=== PATIENT | female | born 1985 | race American Indian/Alaskan Native ===

== ENCOUNTER 2019-12-07 07:57 | Inpatient (IN) | payer BC, MEDICAID ==
[2019-12-07] MEDS ORDERED: LACTATED RINGERS 2,000 ML ONE (08:19)
[2019-12-07] MEDS ORDERED: FAMOTIDINE 20 MG/2 ML INJ IV ONE (08:31)
[2019-12-07] MEDS ORDERED: BICITRA ORAL LIQD 30ML PO ONE (08:31)
[2019-12-07] MEDS ORDERED: METOCLOPRAMIDE 10 MG/2 ML INJ IV ONE (08:31)
[2019-12-07 08:43] LABS: Basophils % (Auto) 0.4 % (0.0-1.8); Eosinophils # (Auto) 0.2 K/mm3 (0.0-0.4); Eosinophils % (Auto) 1.8 % (0.0-4.3); Hematocrit 39.5 % (30.3-42.9); Hemoglobin 13.6 gm/dl (10.1-14.3); Lymphocytes # (Auto) 1.3 K/mm3 (1.2-5.4); Lymphocytes % (Auto) 12.7 % (13.4-35.0); Mean Corpuscular HGB Conc 35 % (30-34); Mean Corpuscular Volume 91 fl (79-97); Monocytes # (Auto) 0.8 K/mm3 (0.0-0.8); Monocytes % (Auto) 7.6 % (0.0-7.3); Platelet Count 304 K/mm3 (140-440); Red Blood Count 4.35 M/mm3 (3.65-5.03); Red Cell Distribution Width 13.8 % (13.2-15.2)
--- NOTE | 2019-12-07 08:50 | Anesthesia Day of Surgery ---
Anesthesia Day of Surgery - Day of Surgery Patient Examined: Yes Patient H&P Reviewed: Yes Patient is NPO: Yes Beta Blockers: No Cardiac Clearance: No Pulmonary Clearance: No Bernardo's Test: N/A
[2019-12-07] MEDS: LACTATED RINGERS 1,000 ML IV SCH ×2 (08:53→15:39)
[2019-12-07] MEDS ORDERED: BUPIVACAINE-EPINEPHRINE/PF 0.25%-1:200,000 (30 ML) VIAL INFILTRATI ONE (08:58)
[2019-12-07] MEDS ORDERED: OXYTOCIN 20 UNIT/1000ML DRIP 20 UNITS/1,000 ML BAG IV SCH ×2 (09:00→13:00)
[2019-12-07] MEDS ORDERED: ceFAZolin/Water 2 GM/20 ML 2 GM/20 ML SYRINGE IV NR (09:00)
--- NOTE | 2019-12-07 09:14 | Anesthesia Consultation ---
Anesthesia Consult and Med Hx Date of service: 12/07/19 - Airway Anesthetic Teeth Evaluation: Poor ROM Head & Neck: Adequate Mental/Hyoid Distance: Adequate Mallampati Class: Class II Intubation Access Assessment: Probably Good - Pulmonary Exam CTA: Yes - Cardiac Exam Cardiac Exam: RRR - Pre-Operative Health Status ASA Pre-Surgery Classification: ASA3 Proposed Anesthetic Plan: Spinal - Pre-Anesthesia Comment Pre-Anesthesia Comments: csection 5yrs ago - Pulmonary Hx Smoking: No Hx Asthma: No Hx Respiratory Symptoms: No SOB: No COPD: No Home Oxygen Therapy: No Hx Pneumonia: No Hx Sleep Apnea: No - Cardiovascular System Hx Hypertension: Yes (LABERTALOL) Hx Coronary Artery Disease: No Hx Heart Attack/AMI: No Hx Angina: No Hx Percutaneous Transluminal Coronary Angioplasty (PTCA): No Hx Cardia Arrhythmia: No Hx Pacemaker: No Hx Internal Defibrillator: No Hx Valvular Heart Disease: No Hx Heart Murmur: No Hx Peripheral Vascular Disease: No - Central Nervous System Hx Neuromuscular Disorder: No Hx Seizures: No CVA: No Hx Back Pain: No Hx Psychiatric Problems: No - Gastrointestinal Hx Ulcer: No Hx Gastroesophageal Reflux Disease: Yes - Endocrine Hx Renal Disease: No Hx End Stage Renal Disease: No Hx Cirrhosis: No Hx Liver Disease: No Hx Insulin Dependent Diabetes: No Hx Non-Insulin Dependent Diabetes: No Hx Thyroid Disease: No Hx Hypothyroidism: No Hx Hyperthyroidism: No - Hematic Hx Anemia: No Hx Sickle Cell Disease: No - Other Systems Hx Alcohol Use: No Hx Substance Use: No Hx Cancer: No Hx Obesity: Yes
[2019-12-07] MEDS ORDERED: WATER FOR IRRIG STERILE 1,500 ML BOTTLE IR ONE (09:40)
[2019-12-07] MEDS ORDERED: SODIUM CHLORIDE 0.9% IRR 1,500 ML BOTTLE IR ONE (09:40)
[2019-12-07] MEDS ORDERED: PHENYLEPHRINE/NS 1,000 MCG/10 ML SYRINGE (OR USE) IV ONE (09:51)
[2019-12-07] MEDS ORDERED: ONDANSETRON 4 MG/2 ML INJ ONE (09:51)
[2019-12-07] MEDS ORDERED: KETOROLAC 30 MG/1 ML INJ ONE (09:51)
[2019-12-07] MEDS ORDERED: miSOPROStol 200 MCG TAB ONE (09:52)
[2019-12-07] MEDS ORDERED: DEXMEDETOMIDINE 200 MCG/2 ML VIAL IV ONE (09:52)
[2019-12-07] MEDS ORDERED: miSOPROStol 100 MCG TAB ONE (11:12)
[2019-12-07] MEDS ORDERED: CARBOPROST TROMETHAMINE 250 MCG/1 ML INJ IM ONE (11:13)
[2019-12-07] MEDS ORDERED: HYDROmorphone 1 MG/1 ML INJ IV PRN (11:53)
[2019-12-07] MEDS ORDERED: ONDANSETRON 4 MG/2 ML INJ IV PRN ×2 (11:53→12:30)
--- NOTE | 2019-12-07 11:53 | Post Anesthesia Evaluation ---
- Post Anesthesia Evaluation Patient Participated: Yes Airway Patent: Yes Stable Respiratory Function: Yes Nausea/Vomiting: No Temp > 96.8F: Yes Pain Manageable: Yes Adequeate Hydration: Yes Anesthesia Complications: No Block Receding Appropriately: Yes Patient on Ventilator: No
[2019-12-07] MEDS ORDERED: WITCH HAZEL/ GLYCERIN PAD TP PRN (12:17)
[2019-12-07] MEDS ORDERED: LANOLIN/ZINC/DIMETHICONE (LANSINOH) 7 GM TP PRN (12:17)
[2019-12-07] MEDS ORDERED: KETOROLAC 30 MG/1 ML INJ IV PRN (12:17)
[2019-12-07] MEDS ORDERED: NALOXONE 0.4 MG/1 ML INJ IV PRN (12:30)
--- NOTE | 2019-12-07 13:51 | Procedure Note ---
OB Delivery Note - Delivery Date of Delivery: 12/07/19 Surgeon: ALDEN PURVIS Estimated blood loss: other (900cc) - Section Preop diagnosis: repeat , desires sterilization Postop diagnosis: same section procedure: section, repeat low transverse, other (Bilateral salpingectomies) Disposition: PACU Complications: none Narrative: Indication: 34-year-old at 39 weeks and 6 days is here today for her repeat low-transverse . Patient with a history of 1 prior . Of note after that last , patient had the Essure sterilization procedure. Subsequent to that patient became with this . Patient also noted that she needed a bladder repair during her first . Findings: Normal uterus, tubes and ovaries except for thick band of adhesions from the anterior uterine wall to the peritoneum with some omental adhesions as well. The Essure coils were not visible or palpable. Thin meconium fluid. Loose nuchal cord around the body x1. Procedure: Patient taken to the operating room and prepped and draped in the usual fashion. Pfannenstiel skin incision was made and carried down to the underlying fascia. Fascia was incised and the incision was extended bilaterally. Rectus fascia dissected off the rectus muscle both superiorly and inferiorly. Peritoneum identified tented up and entered. Peritoneal incision extended superiorly and inferiorly with good visualization of the bladder. Bladder blade was placed. The above-noted adhesions were lysed with combination of cautery and suture ligation. Uterine incision was made and the incision was extended bilaterally. The baby was delivered from in the typical vertex fashion. Baby bulb suctioned at the incision site and again after delivery. Cord was delayed clamped and cut and handed off to waiting team. The placenta was delivered spontaneously. The uterus was exteriorized and cleared of all clots and debris. Uterine incision closed with 0 Vicryl in a running locked fashion followed by a second imbricating layer of 0 Vicryl. A couple additional stitches were required and then good hemostasis was noted. Her urine was clear with no evidence of bladder injury. At this point attention was turned to the fallopian tubes. As was discussed with the patient preoperatively, since she became after having the Essure sterilization, decision was made to remove both tubes. Attention was first turned to the right side where all the areas of attachment were dissected off with either cautery or 2-0 Vicryl suture ligation. The right fallopian tube was then sent to pathology and that sides salpingectomy was performed without difficulty and with good hemostasis. Attention was then turned to the left side where this was done the exact same fashion with equal success and good hemostasis. Surgicel placed over both areas of dissection. During manipulation of the uterus there was a small serosal tear near the posterior fundus of the uterus which was repaired with running 2-0 Vicryl stitch and good hemostasis noted after that. Uterus tubes and ovaries returned to the abdominal cavity. Pelvis was well irrigated. Good hemostasis noted, including at the areas of the salpingectomies. Interceed placed over the uterine incision and over the lower uterine segment in the midline. Attention was turned to the rectus fascia which was reapproximated with 0 Vicryl in a running fashion. Subcutaneous tissues was irrigated and reapproximated with 2-0 Vicryl in a running fashion. Skin was closed with 4-0 Vicryl in a subcuticular fashion followed by Dermabond. The procedure was concluded at this point and the patient tolerated the procedure well. All instrument and lap counts were correct. - Infant A at 1 minute: 8 at 5 minutes: 9 Infant Gender: Female
[2019-12-07] MEDS ORDERED: SENNOSIDES 8.6 MG TAB PO PRN (22:00)
[2019-12-07] MEDS ORDERED: MAGNESIUM HYDROXIDE (MOM) ORAL LIQD UDC PO PRN (22:00)
[2019-12-08] MEDS: oxyCODONE /ACETAMINOPHEN 5-325MG TAB PO PRN ×3 (01:09→18:02)
[2019-12-08] MEDS: SIMETHICONE 80 MG CHEW TAB PO PRN ×2 (01:09→14:28)
[2019-12-08 06:20] LABS: Hematocrit 29.8 % (30.3-42.9); Hemoglobin 10.1 gm/dl (10.1-14.3)
[2019-12-08] MEDS: FERROUS SULFATE 325 MG TAB PO SCH (14:06)
--- NOTE | 2019-12-08 14:47 | Progress Note ---
Assessment and Plan A: /postop day 1 S/P repeat C/S with bilateral salpingectomies. Anemia. P: Oral iron supplementation. Encouraged ambulation. Subjective - Subjective Date of service: 12/08/19 Principal diagnosis: /postop day 1 S/P repeat LTCS and bilateral salpingectomies Interval history: /postop day 1. Doing well. Patient reports: appetite normal, voiding normally, pain well controlled, flatus, ambulating normally, no dizzy ambulation, no nauseated : doing well Objective - Vital Signs Latest vital signs: Vital Signs Temp Pulse Resp BP Pulse Ox 12/08/19 08:22 98.2 F 94 H 20 139/87 12/08/19 04:00 98.7 F 76 18 120/70 12/08/19 02:50 98 F 93 H 16 124/70 12/08/19 00:00 98.6 F 112 H 18 150/100 12/07/19 19:30 98.6 F 77 18 130/77 12/07/19 16:10 97.9 F 103 H 18 134/90 98 Intake and Output 12/07/19 12/08/19 12/08/19 23:59 07:59 15:59 Intake Total 300 320 Output Total 400 300 Balance -100 20 Intake: Oral 320 Intake, Free Water 300 Output: Urine 400 300 Void 400 300 Other: Total, Intake Amount 320 Total, Output Amount 400 300 # Voids Void 1 3 - Exam Cardiovascular: Present: Regular rate, Normal S1, Normal S2, No murmurs Lungs: Present: Clear to auscultation Abdomen: Present: normal appearance, soft, normal bowel sounds. Absent: distention, tenderness, guarding, rigidity Uterus: Present: normal, firm, fundal height below umbilicus. Absent: bogginess, tenderness Extremities: Present: normal. Absent: tenderness, edema Incision: Present: normal, dry, dressed - Labs Labs: Abnormal lab results 12/08/19 Range/Units 05:47 Hct 29.8 L D (30.3-42.9) %
[2019-12-09] MEDS: IBUPROFEN 800 MG TAB PO PRN ×3 (00:15→21:58)
[2019-12-09] MEDS: FERROUS SULFATE 325 MG TAB PO SCH (10:37)
--- NOTE | 2019-12-09 19:10 | Progress Note ---
Assessment and Plan A: /postop day 2 S/P repeat LTCS with bilateral salpingectomies. Anemia. P: Continue current management. Continue iron supplementation. Subjective - Subjective Date of service: 12/09/19 Principal diagnosis: /postop day 2 S/P repeat LTCS and bilateral salpingectomies Interval history: /postop day 2. Doing well. Patient reports: appetite normal, voiding normally, pain well controlled, flatus, ambulating normally, no dizzy ambulation, no nauseated [place]: doing well Objective - Vital Signs Latest vital signs: Vital Signs Temp Pulse Resp BP 12/09/19 15:55 98.2 F 98 H 20 140/79 12/09/19 09:49 98.3 F 93 H 20 131/88 12/09/19 00:00 98.8 F 81 18 119/78 Intake and Output 12/09/19 12/09/19 12/09/19 07:59 15:59 23:59 Intake Total 800 480 Balance 800 480 Intake: Oral 200 480 Intake, Free Water 600 Other: Total, Intake Amount 200 360 # Voids Void 1 - Exam Cardiovascular: Present: Regular rate, Normal S1, Normal S2, No murmurs Lungs: Present: Clear to auscultation Abdomen: Present: normal appearance, soft, normal bowel sounds. Absent: distention, tenderness, guarding, rigidity Uterus: Present: normal, firm, fundal height below umbilicus. Absent: bogginess, tenderness Extremities: Present: normal. Absent: tenderness, edema Incision: Present: normal, dry, intact
[2019-12-10] MEDS: IBUPROFEN 800 MG TAB PO PRN (05:42)
[2019-12-10] MEDS: oxyCODONE /ACETAMINOPHEN 5-325MG TAB PO PRN (09:36)
[2019-12-10] MEDS: FERROUS SULFATE 325 MG TAB PO SCH (09:36)
--- NOTE | 2019-12-10 13:41 | Progress Note ---
Assessment and Plan - Patient Problems (1) S/P repeat low transverse Current Visit: Yes Status: Acute Plan to address problem: POD 3 - with elevated BPs Continue routine postop orders If PIH labs are normal, will discharge patient to home today on antihypertensive therapy to follow-up at [facility] in 1 week for incision and BP check (2) Single live Current Visit: Yes Status: Acute (3) S/P tubal ligation Current Visit: Yes Status: Acute (4) Chronic hypertension during Current Visit: Yes Status: Acute Plan to address problem: Patient reports she was on Labetalol during her but has not received any since admission Elevated BP readings today Labetalol 200mg PO BID initiated PIH labs ordered Subjective - Subjective Date of service: 12/10/19 Principal diagnosis: POD #3; s/p Repeat LTCS with BTL Interval history: see OB Delivery Procedure Note and PP/[facility] Progress Note Patient reports: appetite normal, voiding normally, pain well controlled, flatus, bowel movement, ambulating normally, other (denies headache, visual disturbances or RUQ pain), no dizzy ambulation, no nauseated : doing well, nursing well Objective - Vital Signs Latest vital signs: Vital Signs Temp Pulse Resp BP BP BP Pulse Ox 12/10/19 12:07 98.1 F 83 20 138/96 147/99 100 12/10/19 09:13 89 141/91 98 12/10/19 07:43 97.8 F 95 H 20 150/99 100 12/10/19 00:18 122/78 12/10/19 00:17 98.5 F 90 20 135/93 100 12/09/19 15:55 98.2 F 98 H 20 140/79 Intake and Output 12/09/19 12/10/19 12/10/19 23:59 07:59 15:59 Intake Total 240 240 Balance 240 240 Intake: Oral 240 240 Other: Total, Intake Amount 240 240 # Voids Void 1 1 - Exam Cardiovascular: Present: Regular rate Lungs: Present: Clear to auscultation Abdomen: Present: normal appearance, soft Vulva: both: normal Uterus: Present: normal, firm, fundal height below umbilicus Extremities: Present: normal Incision: Present: normal, dry, intact Comments: scant lochia
[2019-12-10 14:20] LABS: Hematocrit 31.7 % (30.3-42.9); Hemoglobin 10.8 gm/dl (10.1-14.3); Mean Corpuscular HGB Conc 34 % (30-34); Mean Corpuscular Volume 91 fl (79-97); Platelet Count 319 K/mm3 (140-440); Red Blood Count 3.49 M/mm3 (3.65-5.03); Red Cell Distribution Width 13.9 % (13.2-15.2)
[2019-12-10 14:50] LABS: Uric Acid 4.7 mg/dL (3.5-7.6)
--- NOTE | 2019-12-10 15:37 | Discharge Summary ---
Providers - Providers Date of Admission: 12/07/19 07:57 Date of discharge: 12/10/19 Attending physician: ALDEN PURVIS Primary care physician: FRONT OFFICE ATTENDANT Hospitalization Reason for admission: section, IUP at term Delivery: Procedure: bilateral tubal ligation, repeat low transverse Episiotomy: none Laceration: none Incision: normal, dry, intact Other procedures: none complications: none Discharge diagnosis: IUP at term delivered [place] baby: female Hospital course: Uncomplicated Condition at discharge: Stable Disposition: [id number] TO HOME OR SELFCARE - Discharge Diagnoses (1) S/P repeat low transverse Status: Acute (2) Single live Status: Acute (3) S/P tubal ligation Status: Acute (4) Chronic hypertension during Status: Acute Comment: PIH labs within normal limits Continue Labetalol 200mg by mouth twice daily Plan - Discharge Medications Prescriptions: labetaloL [Labetalol 200mg TAB] 200 mg PO BID #60 tablet Ibuprofen [Motrin 800 MG tab] 800 mg PO Q6H PRN #30 tablet PRN Reason: Pain, Mild (1-3) oxyCODONE /ACETAMINOPHEN [Percocet 5/325 mg] 1 tab PO Q4H PRN #30 tablet PRN Reason: Pain, Moderate (4-6) - Provider Discharge Summary Activity: routine, no sex for 6 weeks, no heavy lifting 4 weeks, no strenuous exercise Diet: routine Instructions: routine Additional instructions: [] Smoking cessation referral if applicable(refer to patient education folder for contact #) [] Refer to [facility]'s [place] [facility] Booklet Call your doctor immediately for: * Fever > 100.5 * Heavy vaginal bleeding ( >1 pad per hour) * Severe persistent headache * Shortness of breath * Reddened, hot, painful area to leg or breast * Drainage or odor from incision. * Keep incision clean and dry at all times and follow doctor's instructions regarding bathing/showering - Follow up plan Follow up: PRIMARY CARE, [Primary Care Provider] - 7 Days (Follow-up at [facility] as needed or in 1 week for incision and blood pressure check)
[2019-12-10 16:07] VITALS: BP 136/87
== END 2019-12-10 16:30 | disposition home or self-care (01) | DRG 784 ==
LOC: APU 07:57 → OB 13:09
PROVIDERS: ADMIT Obstetrics & Gynecology; ATTEND Obstetrics & Gynecology
PROC: 10D00Z1 Extraction of Products of Conception, Low, Open Approach (ICD-10-PCS; principal; 2019-12-07)
PROC: 0UB70ZZ Excision of Bilateral Fallopian Tubes, Open Approach (ICD-10-PCS; 2019-12-07)
DX: O34.211 Maternal care for low transverse scar from previous cesarean delivery (principal); O10.92 Unspecified pre-existing hypertension complicating childbirth; O99.62 Diseases of the digestive system complicating childbirth; O99.02 Anemia complicating childbirth; K21.9 Gastro-esophageal reflux disease without esophagitis; O99.214 Obesity complicating childbirth; E66.9 Obesity, unspecified; O69.81X0 Labor and delivery complicated by cord around neck, without compression, not applicable or unspecified; O77.0 Labor and delivery complicated by meconium in amniotic fluid; Z3A.39 39 weeks gestation of pregnancy; Z37.0 Single live birth; Z30.2 Encounter for sterilization
CPT/HCPCS: 36415; 83615; 84450; 84460; 84550; 85014; 85018; 85025; 85027; 86850; 86900; 86901; 88302; G0378; A6250; C1765; J0690; J1885; J2370; J2405; J2590; J2765; J3490; J7120